=== PATIENT | female | born 1955 | race African-American/Black ===

== ENCOUNTER 2017-08-17 13:31 | Emergency (ER) | payer OTHER ==
[~2017-08-17] VITALS: Ht 162.6 cm; Wt 61.4 kg
[~2017-08-17 13:31] MED LIST: AMOXICILLIN/CL875 MG OR; AMOXICILLIN500 MG OR; AMOXICILLIN500 MG PO; AMOXICILLIN875 MG OR; AUGMENTIN875TAB OR; BENZTROPINE0.5 MG PO; CIPRO500 MG OR; CIPRO500 MG PO; CIPROFLOXACN500 MG PO; CLINDAMYCIN150 MG PO; CLONIDINE0.1 MG PO; DOXYCYCL HYC100 MG PO; FLORASTOR250 M1 PO; LORTAB 1010 MG PO; LORTAB 5 OR; LORTAB 5/3255 MG PO; MAALOX/BEN PO; METRONIDAZOL500 MG PO; NAPROSYN500 MG PO; NO HOME MEDS; NORVASC PO; NORVASC10 M1 PO; NORVASC5 MG PO; PENICILLN VK500 MG OR; PENICILLN VK500 MG PO; PROZAC10 MG OR; PROZAC40 MG OR; RISPERDAL3 MG PO; ROBITUSSIN AC10 ML OR; ROCEPHIN 2250 MG/VIA IM; TYLENOL # 31 TAB PO; ULTRAM50 M1 PO; ULTRAM50 MG OR; ZPAK PO
[2017-08-17] MEDS ORDERED: FLUOXETINE HCL10 MG PO (13:46)
[2017-08-17] MEDS ORDERED: MOTRIN400 MG PO (13:54)
[2017-08-17] MEDS ORDERED: PENICILLN VK500 MG PO (13:54)
[2017-08-17 14:14] VITALS: BP 128/70
== END 2017-08-17 14:14 | disposition home or self-care (01) | DRG 159 ==
LOC: ED 13:31
DX: K08.89 Other specified disorders of teeth and supporting structures (principal); R68.84 Jaw pain

== ENCOUNTER 2017-10-15 18:18 | Emergency (ER) | payer OTHER ==
[~2017-10-15] VITALS: Ht 162.6 cm; Wt 61.4 kg
[~2017-10-15 18:18] MED LIST changes: +FLUOXETINE HCL10 MG PO; +MOTRIN400 MG PO
[2017-10-15 18:51] LABS: URINE BILIRUBIN - DIPSTICK NEGATIVE (NEGATIVE); URINE BLOOD DIPSTICK SMALL (NEGATIVE); URINE COLOR YELLOW; URINE GLUCOSE - DIPSTICK NEGATIVE (NEGATIVE); URINE KETONE NEGATIVE (NEGATIVE); URINE NITRITE - DIPSTICK NEGATIVE (Negative); URINE PH 5.5 (4.5-8.0); URINE PROTEIN - DIPSTICK TRACE mg/dL (NEG-TRACE); URINE SPECIFIC GRAVITY 1.025; URINE UROBILINOGEN - DIPSTICK 0.2 E.U./dL (0.2)
[2017-10-15 18:52] LABS: URINE CLARITY SL CLOUDY; URINE LEUK ESTERASE SMALL (NEGATIVE)
[2017-10-15 19:00] LABS: URINE BACTERIA FEW hpf; URINE MUCUS FEW hpf (NONE-FEW); URINE RBC 0-2 RBC/hpf (0-5); URINE SQUAMOUS EPITHELIAL CELL MODERATE EPI/hpf (0-FEW); URINE WBC 20-50 WBC/hpf (0-5)
[2017-10-15] MEDS ORDERED: PENICILLN VK500 MG PO (19:05)
[2017-10-15] MEDS ORDERED: IBUPROFEN600 MG PO (19:05)
[2017-10-15 19:15] VITALS: BP 150/86
== END 2017-10-15 19:16 | disposition home or self-care (01) ==
LOC: ED 18:18
PROVIDERS: Family Medicine
DX: N39.0 Urinary tract infection, site not specified (principal); K02.9 Dental caries, unspecified; K04.7 Periapical abscess without sinus; R30.0 Dysuria

== ENCOUNTER 2020-04-23 16:33 | Emergency (ER) | payer OTHER ==
[~2020-04-23] VITALS: Ht 162.6 cm; Wt 84.1 kg
[~2020-04-23 16:33] MED LIST changes: +IBUPROFEN600 MG PO
[2020-04-23] MEDS ORDERED: RISPERDAL1 MG PO (17:30)
[2020-04-23 20:00] VITALS: BP 138/79
== END 2020-04-23 20:00 | disposition home or self-care (01) ==
LOC: ED 16:33
DX: S80.01XA Contusion of right knee, initial encounter (principal); S39.012A Strain of muscle, fascia and tendon of lower back, initial encounter; I10 Essential (primary) hypertension; F32.9 Major depressive disorder, single episode, unspecified; F17.210 Nicotine dependence, cigarettes, uncomplicated; W01.0XXA Fall on same level from slipping, tripping and stumbling without subsequent striking against object, initial encounter; Y93.H2 Activity, gardening and landscaping; Y92.007 Garden or yard of unspecified non-institutional (private) residence as the place of occurrence of the external cause

== ENCOUNTER 2020-04-27 04:15 | Emergency (ER) | payer OTHER ==
[~2020-04-27] VITALS: Ht 162.6 cm; Wt 84.1 kg
[~2020-04-27 04:15] MED LIST changes: +RISPERDAL1 MG PO
[2020-04-27] MEDS ORDERED: DIFLUNISAL500 MG PO (04:40)
[2020-04-27] MEDS ORDERED: PERCOGESI1 PO (04:40)
[2020-04-27 05:03] VITALS: BP 186/89
== END 2020-04-27 05:04 | disposition home or self-care (01) ==
LOC: ED 04:15
DX: S39.012A Strain of muscle, fascia and tendon of lower back, initial encounter (principal); S80.01XA Contusion of right knee, initial encounter; I10 Essential (primary) hypertension; F32.9 Major depressive disorder, single episode, unspecified; F17.210 Nicotine dependence, cigarettes, uncomplicated; W01.0XXA Fall on same level from slipping, tripping and stumbling without subsequent striking against object, initial encounter

== ENCOUNTER 2021-04-29 09:37 | Emergency (ER) | payer MEDICARE, OTHER ==
[~2021-04-29] VITALS: Ht 170.2 cm; Wt 90.0 kg
[~2021-04-29 09:37] MED LIST changes: +DIFLUNISAL500 MG PO; +PERCOGESI1 PO
[2021-04-29] MEDS ORDERED: MOTRIN800 MG PO (10:39)
[2021-04-29] MEDS ORDERED: VOLTAREN1%GEL TOP (10:40)
[2021-04-29 10:42] LABS: HEMOGLOBIN 15.3 g/dl (12.0-16.0); IMMATURE GRANULOCYTES 0.3 % (0.0-5.0); MEAN CELL VOLUME 95.5 fL CALC (80.0-100.0); MEAN CORPUSCULAR HGB 31.6 pG CALC (26.0-32.0); MEAN CORPUSCULAR HGB CONC 33.1 g/dL CAL (32.0-36.0); NEUT# 5.98 thou/uL (2.00-7.15); RED BLOOD COUNT 4.84 mill/uL (4.20-5.60); RED CELL DISTRI WIDTH 11.8 % (11.5-15.5)
[2021-04-29 11:02] LABS: HEMATOCRIT 46.2 % (37.0-47.0)
[2021-04-29 11:04] LABS: ALBUMIN 4.2 g/dL (3.2-5.0); CREATININE 1.1 mg/dL (0.5-1.0); POTASSIUM 3.5 mmol/l (3.5-5.1); TOTAL PROTEIN 7.9 g/dL (6.3-8.2)
[2021-04-29 11:08] LABS: BILIRUBIN, TOTAL 1.5 mg/dL (0.0-1.4)
[2021-04-29 13:30] VITALS: BP 160/89
== END 2021-04-29 13:50 | disposition left against medical advice (07) ==
LOC: ED 09:37 → ED-I 11:00 → ED 13:50
PROVIDERS: Family Medicine
DX: R07.9 Chest pain, unspecified (principal); U07.1 COVID-19; I10 Essential (primary) hypertension; F32.A Depression, unspecified; F17.210 Nicotine dependence, cigarettes, uncomplicated; Z91.19 Patient's noncompliance with other medical treatment and regimen; J11.1 Influenza due to unidentified influenza virus with other respiratory manifestations; R07.89 Other chest pain; E87.6 Hypokalemia; F20.9 Schizophrenia, unspecified

== ENCOUNTER 2021-05-03 11:43 | Emergency (ER) | payer MEDICARE, OTHER ==
[~2021-05-03 11:43] MED LIST changes: +MOTRIN800 MG PO; +VOLTAREN1%GEL TOP
== END 2021-05-03 14:48 | disposition left against medical advice (07) ==
LOC: ED 11:43 → LWOBS 14:47
DX: Z53.21 Procedure and treatment not carried out due to patient leaving prior to being seen by health care provider (principal)

== ENCOUNTER 2021-05-05 09:32 | Emergency (ER) | payer MEDICARE, OTHER | END 2021-05-05 09:40 | disposition left against medical advice (07) | LOC: ED 09:32 → LWOBS 09:39 | DX: Z53.21 Procedure and treatment not carried out due to patient leaving prior to being seen by health care provider (principal) ==

== ENCOUNTER 2022-02-05 17:13 | Emergency (ER) | payer MEDICARE, MEDICAID ==
[~2022-02-05] VITALS: Ht 170.2 cm; Wt 77.3 kg
[2022-02-05 18:05] VITALS: BP 181/95
[2022-02-05 18:25] LABS: HEMATOCRIT 41.3 % (37.0-47.0); HEMOGLOBIN 13.9 g/dl (12.0-16.0); IMMATURE GRANULOCYTES 0.2 % (0.0-5.0); MEAN CELL VOLUME 95.2 fL CALC (80.0-100.0); MEAN CORPUSCULAR HGB CONC 33.7 g/dL CAL (32.0-36.0); NEUT# 2.61 thou/uL (2.00-7.15); RED BLOOD COUNT 4.34 mill/uL (4.20-5.60); RED CELL DISTRI WIDTH 11.6 % (11.5-15.5)
[2022-02-05 18:31] VITALS: BP 162/76
[2022-02-05 18:38] LABS: ALBUMIN 4.5 g/dL (3.2-5.0); ALKALINE PHOSPHATASE 109 u/l (38-126); ANION GAP 14 (6-22 (CALC)); BUN 11 mg/dL (8-23); BUN/CREATININE RATIO 14 (12-20 (CALC)); CARBON DIOXIDE 26 mmol/l (22-30); CHLORIDE 103 mmol/l (95-108); CREATININE 0.8 mg/dL (0.5-1.0); GFR FOR AFR.AMER. > 60 ML/MIN (>=60 (CALC)); GFR OTHER RACES > 60 ML/MIN (>=60 (CALC)); LIPASE 28 u/l (23-300); POTASSIUM 3.4 mmol/l (3.5-5.1); SGOT/AST 30 u/l (9-36); SODIUM 139 mmol/l (137-146); TOTAL PROTEIN 7.6 g/dL (6.3-8.2)
[2022-02-05 18:40] LABS: BILIRUBIN, TOTAL 0.6 mg/dL (0.0-1.4)
[2022-02-05 19:01] VITALS: BP 149/68
[2022-02-05 20:22] LABS: URINE BILIRUBIN - DIPSTICK NEGATIVE (NEGATIVE); URINE BLOOD DIPSTICK MODERATE (NEGATIVE); URINE COLOR YELLOW; URINE GLUCOSE - DIPSTICK NEGATIVE (NEGATIVE); URINE KETONE NEGATIVE (NEGATIVE); URINE LEUK ESTERASE NEGATIVE (NEGATIVE); URINE NITRITE - DIPSTICK NEGATIVE (Negative); URINE PH 5.5 (4.5-8.0); URINE PROTEIN - DIPSTICK NEGATIVE (NEG-TRACE); URINE UROBILINOGEN - DIPSTICK 0.2 E.U./dL (0.2)
[2022-02-05 20:23] LABS: URINE EPITHELIAL CELLS FEW EPI/hpf (0-FEW)
[2022-02-05] MEDS ORDERED: MIRALAX17 GM PO (20:30)
[2022-02-05 20:49] VITALS: BP 149/68
[2022-02-05] MEDS ORDERED: DIFLUCAN150 MG PO (21:01)
[2022-02-05] MEDS ORDERED: MONISTAT1 VA (21:01)
== END 2022-02-05 21:05 | disposition home or self-care (01) ==
LOC: ED 17:13
PROVIDERS: Family Medicine
DX: K59.00 Constipation, unspecified (principal); I10 Essential (primary) hypertension; F32.A Depression, unspecified; F17.200 Nicotine dependence, unspecified, uncomplicated

== ENCOUNTER 2022-09-08 07:42 | Emergency (ER) | payer MEDICARE, MEDICAID ==
[~2022-09-08] VITALS: Ht 170.2 cm; Wt 72.0 kg
[~2022-09-08 07:42] MED LIST changes: +DIFLUCAN150 MG PO; +MIRALAX17 GM PO; +MONISTAT1 VA
[2022-09-08 07:52] VITALS: BP 161/80
[2022-09-08] MEDS ORDERED: AMOX/K CLAV875 M1 PO (08:00)
[2022-09-08] MEDS ORDERED: ZOFRAN4 MG/TAB PO (08:00)
[2022-09-08 08:02] VITALS: BP 197/84
[2022-09-08 08:14] VITALS: BP 198/110
[2022-09-08 08:15] VITALS: BP 215/96
[2022-09-08 08:18] VITALS: BP 190/82
== END 2022-09-08 08:23 | disposition home or self-care (01) ==
LOC: ED 07:42
DX: J06.9 Acute upper respiratory infection, unspecified (principal); I10 Essential (primary) hypertension; F32.A Depression, unspecified; F17.200 Nicotine dependence, unspecified, uncomplicated

== ENCOUNTER 2024-02-24 21:53 | Emergency (ER) | payer MEDICARE, MEDICAID ==
[~2024-02-24] VITALS: Ht 170.2 cm; Wt 81.0 kg
[~2024-02-24 21:53] MED LIST changes: +AMOX/K CLAV875 M1 PO; +ZOFRAN4 MG/TAB PO
[2024-02-24] MEDS ORDERED: TETRACAINE HCL 0.5 %/4 ML SOL OD ONE (22:00)
[2024-02-24 22:11] VITALS: BP 180/98
== END 2024-02-24 22:17 | disposition home or self-care (01) ==
LOC: ED 21:53
PROC: 09C3XZZ Extirpation of Matter from Right External Auditory Canal, External Approach (ICD-10-PCS; principal; 2024-02-24)
DX: T16.1XXA Foreign body in right ear, initial encounter (principal); I10 Essential (primary) hypertension; F32.A Depression, unspecified; F17.210 Nicotine dependence, cigarettes, uncomplicated; W44.F4XA Insect entering into or through a natural orifice, initial encounter